=== PATIENT | female | born 1990 | race Caucasian/White ===

== ENCOUNTER 2016-12-07 14:17 | Emergency (ER) | payer MEDICAID ==
[2016-12-07 14:18] VITALS: BMI 17.6
[2016-12-07 15:43] LABS: BASO % 0.6 % (0.0-2.0); EOS # 0.2 K/uL (0.0-0.7); EOS % 2.3 % (0.0-4.0); HEMATOCRIT 34.7 % (34.0-47.0); LYMPH # 2.6 K/uL (1.0-4.3); LYMPH % 39.2 % (20.0-40.0); MEAN CORPUSCULAR HEMOGLOBIN 27.6 pg (27.0-31.0); MEAN CORPUSCULAR HGB CONC 32.5 g/dL (33.0-37.0); MEAN PLATELET VOLUME 9.9 fL (7.2-11.7); MONO # 0.6 K/uL (0.0-0.8); MONO % 8.3 % (0.0-10.0); NRBC % 0.1 % (0.0-2.0); RED CELL DISTRIBUTION WIDTH 13.6 % (11.5-14.5); WHITE BLOOD COUNT 6.7 K/uL (4.8-10.8)
--- NOTE | 2016-12-07 15:51 | C.PDOC ---
History Of Present Illness The patient, a 26 y/o female whose PMHx includes Asthma and Depression, presents to the ED for evaluation of right sided chest pain and increased shortness of breath. Patient states she was diagnosed with a pneumothorax at the end of October. During the time, patient had a chest tube placed which was eventually removed on the and patient was discharged the following day. Her last CXR prior to discharge showed a fully inflated lung. Patient notes her chest pain is located where the chest tube was previously located. Patient noted her symptoms began to return so she went to the clinic earlier today and was advised to report to the ED. Patient also reports dizziness and lightheadedness. She denies fever, chills, cough, nausea, vomiting, or worsening of pain with deep inspiration. Upon further questioning patient admits that there has been a lot of family stress recently. She has been anxious and depressed. she has no suicidal ideations and is currently in a good relationship with support. Time Seen by Provider: 12/07/16 15:04 Chief Complaint (Nursing): Chest Pain History Per: Patient History/Exam Limitations: no limitations Onset/Duration Of Symptoms: Days Current Symptoms Are (Timing): Still Present Quality: "Pain" Associated Symptoms: denies: Nausea Additional History Per: Patient Past Medical History Reviewed: Historical Data, Nursing Documentation, Vital Signs Vital Signs: Last Vital Signs Temp 98.1 F 12/07/16 14:42 Pulse 74 12/07/16 14:42 Resp 18 12/07/16 14:42 BP 92/62 L 12/07/16 14:42 Pulse Ox 100 12/07/16 16:03 - Medical History PMH: Anxiety, Asthma, Bipolar Disorder, Depression, Fibromyalgia, Schizophrenia , Sleep Apnea Denies: Bronchitis, COPD, Emphysema, Paranoia, Personality Disorder, Pneumonia, Pneumothorax, Depression, Post Traumatic Stress Disorder, Pulmonary Embolism Surgical History: No Surg Hx - [facility] Procedures DRAINAGE OF R PLEURAL CAV WITH DRAIN DEV, OPEN APPROACH (11/05/16) LOW CERVICAL (08/10/14) NON-INVASIVE MECHANICAL VENTILATION (08/10/14) REMOVAL OF DRAINAGE DEVICE FROM R PLEURAL CAV, OPEN APPROACH (11/05/16) Family History: States: Unknown Family Hx - Social History Hx Tobacco Use: No Hx Alcohol Use: No Hx Substance Use: No - Immunization History Hx Tetanus Toxoid Vaccination: No Hx Influenza Vaccination: No Hx Pneumococcal Vaccination: No Review Of Systems Cardiovascular: Positive for: Chest Pain (right-sided ) Respiratory: Positive for: Shortness of Breath. Negative for: Cough Gastrointestinal: Negative for: Nausea, Vomiting Neurological: Positive for: Dizziness, Other (+lightheadedness ) Physical Exam - Physical Exam Appears: Non-toxic, No Acute Distress Skin: Normal Color, Warm, Dry Head: Atraumatic, Normacephalic Eye(s): bilateral: Normal Inspection, EOMI Oral Mucosa: Moist Neck: Normal ROM, Supple Chest: Symmetrical, No Deformity, No Tenderness Cardiovascular: Rhythm Regular, No Murmur Respiratory: Normal Breath Sounds, No Rales, No Rhonchi, No Wheezing Gastrointestinal/Abdominal: Soft, No Tenderness, No Guarding, No Rebound Back: Normal Inspection, No Vertebral Tenderness, No Paraspinal Tenderness Extremity: Normal ROM, Capillary Refill (less than 2 seconds) Neurological/Psych: Oriented x3, Normal Speech, Normal Cognition Gait: Steady ED Course And Treatment - Laboratory Results Result Diagrams: 12/07/16 15:35 12/07/16 15:35 Lab Interpretation: No Acute Changes ECG: Interpreted By Me ECG Rhythm: Sinus Rhythm ECG Interpretation: Normal O2 Sat by Pulse Oximetry: 100 (on RA) Pulse Ox Interpretation: Normal - Radiology CXR: Viewed By Me, Read By Radiologist CXR Interpretation: Yes: No Acute Disease Progress Note: EKG and CXR ordered and reviewed. Reevaluation Time: 16:58 Reassessment Condition: Improved (Patient is pain free and comfortable.) Disposition Counseled Patient/Family Regarding: Studies Performed, Diagnosis, Need For Followup, Smoking Cessation - Disposition Referrals: [facility] [Outside] Disposition: HOME/ ROUTINE Disposition Time: 16:58 Condition: IMPROVED Instructions: Noncardiac Chest Pain (ED) - Clinical Impression Clinical Impression: Chest pain, non-cardiac - PA / DRUG ENFORCEMENT ADMINISTRATION AGENT / Resident Statement MD/DO has reviewed & agrees with the documentation as recorded. - Scribe Statement The provider has reviewed the documentation as recorded by the Scribe (Raquel Ann) Provider Attestation: All medical record entries made by the Scribe were at my direction and personally dictated by me. I have reviewed the chart and agree that the record accurately reflects my personal performance of the history, physical exam, medical decision making, and the department course for this patient. I have also personally directed, reviewed, and agree with the discharge instructions and disposition.
[2016-12-07 15:54] LABS: CHLORIDE 100 mmol/L (98-107)
[2016-12-07 15:55] LABS: POTASSIUM 3.8 mmol/L (3.6-5.2); SODIUM 139 mmol/L (132-148)
[2016-12-07 15:57] LABS: ALB/GLOB RATIO 1.6 (1.0-2.1); ALKALINE PHOSPHATASE 71 U/L (38-126); AST/SGOT 32 U/L (14-36); BILIRUBIN,TOTAL 0.5 mg/dL (0.2-1.3); CARBON DIOXIDE 26 mmol/L (22-30); GFR AFRICAN-AMERICAN > 60; TOTAL PROTEIN 6.2 g/dL (6.3-8.3)
[2016-12-07 15:58] LABS: ALT/SGPT 26 U/L (9-52); BLOOD UREA NITROGEN 12 mg/dL (7-17); CALCIUM 8.2 mg/dl (8.6-10.4); GLUCOSE,RANDOM 75 mg/dL (65-105)
--- NOTE | 2016-12-07 16:27 | RAD ---
HISTORY: chest pain COMPARISON: Comparison is made to the previous study dated 11/09/2016 TECHNIQUE: Chest PA and lateral FINDINGS: LUNGS: No active pulmonary disease. PLEURA: No significant pleural effusion identified. No pneumothorax apparent. CARDIOVASCULAR: Normal. OSSEOUS STRUCTURES: No significant abnormalities. VISUALIZED UPPER ABDOMEN: Normal. OTHER FINDINGS: None. IMPRESSION: No active disease.
[2016-12-07 17:25] VITALS: PULSE 78; RESP 20; TEMP 98.6; O2SAT 99
[2016-12-07 17:38] VITALS: BP 100/57
--- NOTE | 2016-12-08 11:45 | CARD ---
APPROVED REPORT EKG Measurement Heart [id number] CT [id number] <Conclusion> Normal sinus rhythm Normal ECG
== END 2016-12-07 17:24 | disposition home or self-care (01) ==
LOC: C.ER 14:17
DX: R07.89 Other chest pain (principal)